=== PATIENT | male | born 1990 | race Caucasian/White ===

== ENCOUNTER 2017-05-07 10:13 | Emergency (ER) | payer SELFPAY ==
[2017-05-07 10:26] VITALS: TEMP 97.3
[2017-05-07] MEDS ORDERED: NS 1,000 ML IV ONE (10:46)
[2017-05-07 11:00] LABS: PLATELET COUNT 190 10^3/uL (150-400)
[2017-05-07] MEDS ORDERED: IOPAMIDOL (ISOVUE-300) 100 ML BTL ONE (11:32)
--- NOTE | 2017-05-07 12:05 | EDPHY ---
H & P Time Seen by Provider: 05/07/17 10:25 HPI/ROS: 26-year-old male presents complaining of right lower quadrant abdominal pain for approximately 1 day preceded by generalized abdominal pain for couple of days. No fevers or chills, no nausea no vomiting no diarrhea. No prior abdominal surgery. No dysuria. No testicular pain or swelling No chest pain, no shortness of breath No unusual food exposures Review of systems As per HPI General no fever no chills no weakness HEENT no eye pain no eye discharge. No eye redness, no sore throat Respiratory no cough, no shortness of breath Cardiac no chest pain, no peripheral edema GI positive abdominal pain, no diarrhea, no constipation, no nausea, no vomiting no flank pain, no hematuria, no dysuria Musculoskeletal no myalgias, no joint pain Heme no easy bruising, no easy bleeding Endo no polyuria, no polydipsia Skin no rashes, no pruritus Neuro no syncope, no dizziness, no headaches Psych is no suicidal ideation, no homicidal ideation Past Medical/Surgical History: Immunizations up-to-date No recent hospitalizations No prior abdominal surgery Social History: Works in [employer], make short [email or web address] for [employer] 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[employer], 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 Smoking Status: Never smoked Physical Exam: 26-year-old male alert and oriented no acute distress nontoxic appearance afebrile HEENT atraumatic normocephalic, extraocular muscles intact, anicteric Oropharynx negative for erythema negative exudate, tolerating her own secretions Neck supple no meningismus Lungs clear to auscultation bilaterally Heart regular rate and rhythm without murmur rub or gallop Abdomen nondistended normoactive bowel sounds positive McBurney's point tenderness, no guarding no rebound no Rovsing's Back no CVA tenderness, no step-offs, no spinal tenderness Extremities no cyanosis clubbing or edema Neuro alert and oriented, no focal deficits Constitutional: Initial Vital Signs Temperature (C) 36.3 C 05/07/17 10:20 Heart Rate 75 05/07/17 10:20 Respiratory Rate 14 05/07/17 10:20 Blood Pressure 125/78 H 05/07/17 10:20 O2 Sat (%) 99 05/07/17 10:20 O2 Delivery Mode Room Air Allergies/Adverse Reactions: No Known Allergies Allergy (Unverified 05/07/17 10:26) Home Medications: Medication Instructions Recorded NK [No Known Home Meds] 05/07/17 Medical Decision Making - Diagnostics Imaging Results: Imaging Impressions Abdomen CT 05/07/17 11:24 Impression: 1. Focal area of thickening along the lateral aspect of the cecum with hypodensity along the wall or along the lateral margin of the wall of the cecum with peripheral rim of enhancement that could represent epiploic appendicitis or focal omental infarct. Focal cecal wall inflammation or inflammatory process is felt to be less likely such as focal Crohn's disease or abscess. 2. No CT evidence of appendicitis, abscess or bowel obstruction. Findings discussed with Juliann aRndall MD at 12:01 hour, 05/07/2017. ED Course/Re-evaluation: Patient seen and evaluated for right lower quadrant abdominal pain. Labs CBC, CMP, lipase all within normal limits Urinalysis normal CT abdomen Negative for appendicitis Consistent with appendagitis epiploica Patient given 1 L normal saline, later given ibuprofen 600 mg Impression Appendagitis epiploica Plan Discharge home Return if worsening symptoms such as high fever vomiting, severe pain Ibuprofen q.6 hours for 3-4 days - Data Points Laboratory Results: Laboratory Results 05/07/17 10:58 05/07/17 10:58 05/07/17 05/07/17 05/07/17 10:58 10:58 10:58 WBC 6.16 10^3/uL 10^3/uL (3.80-9.50) RBC 5.42 10^6/uL 10^6/uL (4.40-6.38) Hgb 16.5 g/dL g/dL (13.7-17.5) Hct 47.6 % % (40.0-51.0) MCV 87.8 fL fL (81.5-99.8) MCH 30.4 pg pg (27.9-34.1) MCHC 34.7 g/dL g/dL (32.4-36.7) RDW 12.2 % % (11.5-15.2) Plt Count 190 10^3/uL 10^3/uL (150-400) MPV 10.0 fL fL (8.7-11.7) Neut % (Auto) 57.0 % % (39.3-74.2) Lymph % (Auto) 24.5 % % (15.0-45.0) [place] % (Auto) 14.3 % H % (4.5-13.0) Eos % (Auto) 2.9 % % (0.6-7.6) Baso % (Auto) 0.8 % % (0.3-1.7) Nucleat RBC Rel Count 0.0 % % (0.0-0.2) Absolute Neuts (auto) 3.51 10^3/uL 10^3/uL (1.70-6.50) Absolute Lymphs (auto) 1.51 10^3/uL 10^3/uL (1.00-3.00) Absolute Monos (auto) 0.88 10^3/uL H 10^3/uL (0.30-0.80) Absolute Eos (auto) 0.18 10^3/uL 10^3/uL (0.03-0.40) Absolute Basos (auto) 0.05 10^3/uL 10^3/uL (0.02-0.10) Absolute Nucleated RBC 0.00 10^3/uL 10^3/uL (0-0.01) Immature Gran % 0.5 % % (0.0-1.1) Immature Gran # 0.03 10^3/uL 10^3/uL (0.00-0.10) Sodium 146 mEq/L H mEq/L (135-145) Potassium 3.8 mEq/L mEq/L (3.5-5.2) Chloride 101 mEq/L mEq/L (97-110) Carbon Dioxide 28 mEq/l mEq/l (22-31) Anion Gap 17 mEq/L H mEq/L (8-16) BUN 14 mg/dL mg/dL (7-23) Creatinine 0.9 mg/dL mg/dL (0.7-1.3) Estimated GFR > 60 Glucose 83 mg/dL mg/dL (70-100) Calcium 9.7 mg/dL mg/dL (8.5-10.4) Total Bilirubin 0.5 mg/dL mg/dL (0.1-1.4) AST 27 IU/L IU/L (17-59) ALT 42 IU/L IU/L (21-72) Alkaline Phosphatase 76 IU/L IU/L (38-126) Total Protein 7.8 g/dL g/dL (6.3-8.2) Albumin 4.5 g/dL g/dL (3.5-5.0) Lipase 68 IU/L IU/L (23-300) Urine Color YELLOW Urine Appearance CLEAR Urine pH 7.0 (5.0-7.5) Ur Specific [place] 1.015 (1.002-1.030) Urine Protein NEGATIVE (NEGATIVE) Urine Ketones NEGATIVE (NEGATIVE) Urine Blood NEGATIVE (NEGATIVE) Urine Nitrate NEGATIVE (NEGATIVE) Urine Bilirubin NEGATIVE (NEGATIVE) Urine Urobilinogen 0.2 EU EU (0.2-1.0) Ur Leukocyte Esterase NEGATIVE (NEGATIVE) Urine Glucose NEGATIVE (NEGATIVE) Medications Given: Discontinued Medications Sodium Chloride (Ns) 1,000 mls @ 0 mls/hr IV ONCE ONE PRN Reason: Wide Open Stop: 05/07/17 10:47 Last Admin: 05/07/17 11:15 Dose: 1,000 mls Departure - Departure Disposition: Home, Routine, Self-Care Clinical Impression: Appendicitis epiploica Condition: Good Instructions: Acute Abdominal Pain (ED) Additional Instructions: Ibuprofen every 6 hours for the next 3-4 days, take with food. Referrals: NONE *PRIMARY CARE P,. [Primary Care Provider] - As per Instructions
[2017-05-07] MEDS ORDERED: IBUPROFEN 600 MG TAB PO ONE (12:20)
[2017-05-07] MEDS ORDERED: IBUPROFEN 200 MG TAB PO ONE (12:26)
[2017-05-07 12:53] VITALS: BP 118/74; PULSE 67; RESP 16; O2SAT 96
== END 2017-05-07 12:40 | disposition home or self-care (01) ==
LOC: CED 10:13
DX: K65.9 Peritonitis, unspecified (principal)
CPT/HCPCS: 74177-PO; 80053-PO; 81003-PO; 83690-PO; 85025-PO; Q9967